=== PATIENT | female | born 1990 | race Caucasian/White ===

== ENCOUNTER 2021-06-25 19:55 | Emergency (ER) | payer SELFPAY ==
[~2021-06-25] VITALS: Ht 152.4 cm; Wt 73.0 kg
[2021-06-25] MEDS ORDERED: CASIRIVIMAB 600 MG, IMDEVIMAB 600 MG in SODIUM CHLORIDE 0.9% 100 ML IV SCH (23:00)
[2021-06-26] MEDS ORDERED: POLY10DR LEFTEYE (01:12)
[2021-06-26] MEDS ORDERED: OFLO5DRO3 LEFTEYE (01:12)
[2021-06-26 01:23] VITALS: BP 111/64
== END 2021-06-26 01:27 | disposition home or self-care (01) ==
LOC: ER 19:55
DX: U07.1 COVID-19 (principal)
CPT/HCPCS: 96365; 99284; J7050; Q0244